=== PATIENT | female | born 1940 | race Two or more races ===

== ENCOUNTER 2024-05-23 08:22 | Outpatient (CLI) | payer OTHER | END 2024-05-23 08:37 | disposition home or self-care (01) | LOC: TOM 08:22 | PROVIDERS: ATTEND Internal Medicine | DX: K56.50 Intestinal adhesions [bands], unspecified as to partial versus complete obstruction (principal); R10.30 Lower abdominal pain, unspecified; R19.4 Change in bowel habit ==